=== PATIENT | male | born 1970 | race Caucasian/White ===

== ENCOUNTER 2020-07-02 04:30 | Outpatient (CLI) | payer BC, SELFPAY ==
[2020-07-02 19:32] LABS: SARS-CoV-2 RNA PCR Positive
== END 2020-07-02 04:31 | disposition home or self-care (01) ==
LOC: ANHCOVIDDT 04:30
PROVIDERS: PCP Internal Medicine; Visit Provider Surgery Plastic and Reconstructive Surgery
DX: U07.1 COVID-19 (principal)
CPT/HCPCS: C9803; U0003

== ENCOUNTER 2020-08-19 00:43 | Day surgery (SDC) | payer BC, SELFPAY ==
[2020-06-30 11:58] VITALS: BMI 34.0
[2020-08-11 15:14] VITALS: BMI 34.2
[2020-08-19] VITALS (7 sets, daily range): BP systolic 114–129; BP diastolic 62–78; PULSE 67–95; RESP 10–16; TEMP 36.3; O2SAT 94–100; BMI 34.7
[2020-08-19] MEDS: LACTATED RINGERS 1,000 ML 30 ML IV CONT ×2 (12:38→14:32)
--- NOTE | 2020-08-19 13:03 | WPDHPUPDATE1 ---
History and Physical Update Update Date/Time: 08/19/20 13:03 History and Physical has been reviewed, including an updated exam of the patient. There are NO changes in the patient's condition. Risks, benefits, and alternatives have been discussed and questions answered. Patient agrees to proceed with procedure.
--- NOTE | 2020-08-19 13:05 | PM.HPGS ---
History of Present Illness History of Present Illness Consent: Risks, benefits, and alternatives have been discussed and questions answered. Patient agrees to proceed with procedure. Chief complaint: Mass Right Posterior Neck Narrative: Soto Ferguson is a 50 year old male with a mass of right posterior neck. Would like to proceed with excision. Review of Systems Review of Systems: All systems reviewed & are unremarkable except as noted in HPI and below PMFSH Past Medical History Medical History (Updated 07/11/20 @ 09:02 by Shawna Ch CMA) BMI 34.0-34.9,adult BMI 35.0-35.9,adult Colon cancer screening Encounter to establish care Exposure to smoke from industrial source Follow up History of COVID-19 History of thyroid cancer Hypothyroidism (acquired) Lipoma of back Mixed hyperlipidemia On manager long term care drug therapy Pulmonary nodule Seasonal allergies Vitamin D deficiency Surgical History Surgical History Hx of thyroidectomy 2014. Due to thyroid cancer S/P ACL reconstruction 1998 Family History Family History Father Hypertension Hyperlipidemia Social History Social History Smoking packs per day: 0.5 Smoking cigarettes per day: 10.0 Years smoked: 10 Smoking pack-years: 5.00 Smoking status: Former smoker Tobacco type: cigarettes Smokeless tobacco user: other Second hand tobacco smoke exposure: No Smoking end date: 06/30/97 Alcohol intake: current Substance use: never Substance use type: does not use Last use: 06/30/97 Living arrangements: with family Gender identity (if verbalized by the patient): Male Spiritual care concerns: No Meds Home Medications and Allergies Home Medications Medication Instructions Recorded Confirmed Type cetirizine 10 mg tablet 10 mg PO DAILY tablet 03/22/20 08/19/20 History fluticasone propionate 50 2 spray NASAL DAILY 03/22/20 08/19/20 History mcg/actuation nasal spray,suspension multivitamin 1 tablet PO DAILY 03/22/20 08/11/20 History levothyroxine 175 mcg tablet 175 mcg PO DAILY tablet 04/27/20 08/11/20 History rosuvastatin 40 mg tablet 40 mg PO DAILY #60 tablet 06/08/20 08/11/20 Rx hydrocodone 5 mg-acetaminophen 325 1 tablet PO Q6H PRN #15 tablet 06/29/20 07/11/20 Rx mg tablet ondansetron HCl 4 mg tablet 4 mg PO Q6H PRN #30 tablet 06/29/20 07/11/20 Rx Allergies Allergy/AdvReac Type Severity Reaction Status Date / Time No Known Allergies Allergy Verified 08/19/20 12:25 Vital Signs Vital Signs - 24 hr 08/19/20 12:22 Temperature 36.3 C L Pulse Rate 74 Respiratory Rate 16 Blood Pressure 121/78 Pulse Oximetry 98 Exam Narrative: Exam Narrative: Soft mass noted on right posterior neck. Const: General: comfortable, no acute distress, alert and awake; No acute distress Orientation/consciousness: oriented to person HENMT: Head: normal to inspection Ears: external ears normal General nose exam: Normal external nose present Face and sinus: normal facial exam Eyes: General: appearance normal, both eyes and all related structures Periorbital: periorbital findings normal Eyelids: eyelids normal Conjunctivae: conjunctivae normal Neck: Neck: normal visual inspection Chest: Chest palpation & inspection: normal inspection of the chest Resp: Effort & Inspection: normal respiratory effort and able to speak in complete sentences GI: Inspection: normal to inspection Neuro: General: oriented to person Psych: Appearance: grossly normal Mental Status: mental status grossly normal Assessment and Plan Assessment and plan (1) Subcutaneous mass: Code(s): R22.9 - Localized swelling, mass and lump, unspecified Status: Acute Assessment and Plan: He would like to proceed with excision of right posterior neck mass. Ris
--- NOTE | 2020-08-19 13:17 | P.OP_ITS ---
Procedure Note - Detailed Date of procedure: 08/19/20 Pre-op diagnosis: Mass Right Posterior Neck Post-op diagnosis: same Procedure performed: 1. Excision right posterior neck mass 4.5 cm 2. Closure 4.5cm Description of procedure: Preoperatively the risks, benefits, alternatives were discussed in extensive detail. I want him to be very realistic about the risks involved as well as expectations. Made sure answered all of questions his s atisfaction. Consent was obtained. He was marked with his verification. He was taken to the operating room. Anesthesia provided by anesthesiology and placed in a prone position with care taken to protect all bony prominences. He was prepped and draped in a standard sterile fashion. She surgical time-out was taken. 1% lidocaine and 0.25% Marcaine with epinephrine was used anesthetize locally. A 15 blade used to make an incision over the mass. Dissection was continued down to the was identified completely removed with good visualization. No evidence of neurovascular or other structure injury. A closed in many layers to obliterate all space using a 2-0 Vicryl followed by 3-0 Monocryl in a running subcuticular 4-0 Monocryl and tissue glue. Dressing was placed. A woken and taken to the PACU without difficulty. All instrument sponge counts were correct at the end of the case. Anesthesia: GLMA Surgeon: Rafy Lundberg MD Estimated blood loss (mL): 10 Drains: No Packing: No Pathology: yes (Right posterior neck mass) Complications: No immediate complications Condition: stable Disposition: PACU Findings: Visual appearance consistent with Lipoma
--- NOTE | 2020-08-19 13:17 | WPDANESEPPF ---
Anes - Initial Pre Proc Eval Procedure: Operation Date: 08/19/20 14:00 Proposed Procedures p Excision Mass Right Posterior Neck - Rafy Lundberg MD Date/Time: 08/19/20 13:17 Surgeon: Rafy Lundberg MD Pre Op Diagnosis: Mass Right Posterior Neck Patient Data Age: 50 Gender: M Height: 5 ft 9 in Weight: 106.8 kg Last Vital Signs Temp 97.3 F L 08/19/20 12:22 Pulse 74 08/19/20 12:22 Resp 16 08/19/20 12:22 BP 121/78 08/19/20 12:22 Pulse Ox 98 08/19/20 12:22 Allergies Allergy/AdvReac Type Severity Reaction Status Date / Time No Known Allergies Allergy Verified 08/19/20 12:25 Home Medications Medication Instructions Recorded Confirmed Type cetirizine 10 mg tablet 10 mg PO DAILY tablet 03/22/20 08/19/20 History fluticasone propionate 50 2 spray NASAL DAILY 03/22/20 08/19/20 History mcg/actuation nasal spray,suspension multivitamin 1 tablet PO DAILY 03/22/20 08/11/20 History levothyroxine 175 mcg tablet 175 mcg PO DAILY tablet 04/27/20 08/11/20 History rosuvastatin 40 mg tablet 40 mg PO DAILY #60 tablet 06/08/20 08/11/20 Rx hydrocodone 5 mg-acetaminophen 325 1 tablet PO Q6H PRN #15 tablet 06/29/20 07/11/20 Rx mg tablet ondansetron HCl 4 mg tablet 4 mg PO Q6H PRN #30 tablet 06/29/20 07/11/20 Rx Patient hx anesthesia problems: none Family hx anesthesia problems: none PMFSH Past Medical History Medical History (Updated 07/11/20 @ 09:02 by Shawna Ch CMA) BMI 34.0-34.9,adult BMI 35.0-35.9,adult Colon cancer screening Encounter to establish care Exposure to smoke from industrial source Follow up History of COVID-19 History of thyroid cancer Hypothyroidism (acquired) Lipoma of back Mixed hyperlipidemia On checkroom attendant drug therapy Pulmonary nodule Seasonal allergies Vitamin D deficiency Surgical History Surgical History Hx of thyroidectomy 2014. Due to thyroid cancer S/P ACL reconstruction 1998 Family History Family History Father Hypertension Hyperlipidemia Social History Social History Smoking packs per day: 0.5 Smoking cigarettes per day: 10.0 Years smoked: 10 Smoking pack-years: 5.00 Smoking status: Former smoker Tobacco type: cigarettes Smokeless tobacco user: other Second hand tobacco smoke exposure: No Smoking end date: 06/30/97 Alcohol intake: current Substance use: never Substance use type: does not use Last use: 06/30/97 Living arrangements: with family Gender identity (if verbalized by the patient): Male Spiritual care concerns: No Anes - Eval Final PreProcedure Day of Procedure 08/19/20 13:17 Patient weight: obese Heart: regular rate and rhythm Lungs: clear to auscultation Airway: Mallampati scale class II Neurological: alert and oriented Last oral intake: >/= 8 hours ASA classification: III Emergent: no Anesthetic plan: proceed Anesthesia type and monitoring: general ETT (for prone positioning) and standard monitoring Informed Consent: The patient's anesthetic plan and its attendant risks and benefits were discussed with the patient/family/POA. Questions were solicited and answers provided to the satisfaction of the patient/family/POA.
[2020-08-19] MEDS: ceFAZolin 2 GM/D5W 50 ML 2 GM/50 ML BAG IVPB (13:30)
[2020-08-19] MEDS: LIDO 1%/EPINEPHRINE 1:100,000 50 ML VIAL 10 ML INFILTRATE (14:11)
[2020-08-19] MEDS: ONDANSETRON INJ 4 MG/2 ML VIAL IV PUSH (14:34)
== END 2020-08-19 16:05 | disposition home or self-care (01) ==
PROVIDERS: PCP Internal Medicine; Visit Provider Surgery Plastic and Reconstructive Surgery
PROC: (CPT 21552; principal; 2020-08-19 14:00)
DX: D17.0 Benign lipomatous neoplasm of skin and subcutaneous tissue of head, face and neck (principal); Z86.16 Personal history of COVID-19; Z85.850 Personal history of malignant neoplasm of thyroid; E55.9 Vitamin D deficiency, unspecified; E89.0 Postprocedural hypothyroidism; E78.2 Mixed hyperlipidemia; Z87.891 Personal history of nicotine dependence
CPT/HCPCS: 21552; 88304; J0330; J0690; J1100; J1170; J2250; J2405; J2704; J7120

== ENCOUNTER 2022-08-06 11:21 | Outpatient (CLI) | payer BC, SELFPAY ==
--- NOTE | ~2022-08-06 | XR_ITS ---
EXAMINATION: XR lumbar spine min 4V DATE: 08/06/2022 11:48 INDICATION: Dorsalgia, unspecified. TECHNIQUE: 7 views of lumbar spine including flexion and extension views were obtained. COMPARISON: Lumbar spine radiograph 12/13/2011 FINDINGS: Bone alignment is normal. There is no abnormal motion with flexion or extension. Vertebral body heights are normal. There is mildly decreased disc height at L4-L5. There is moderate to severe facet joint osteoarthritis bilaterally at L4-L5 and L5-S1. IMPRESSION: 1. Mild lumbar spondylosis. Reviewed, dictated and finalized at location A. S REPRESENTATIVE SUPERVISOR IMPRESSION: 1. Mild lumbar spondylosis.
== END 2022-08-06 11:22 | disposition home or self-care (01) ==
PROVIDERS: PCP Internal Medicine; Visit Provider Internal Medicine
DX: M47.816 Spondylosis without myelopathy or radiculopathy, lumbar region (principal)
CPT/HCPCS: 72110

== ENCOUNTER 2023-01-15 10:58 | Outpatient (CLI) | payer BC, SELFPAY ==
--- NOTE | ~2023-01-15 | XR_ITS ---
Right Shoulder Technique: AP and axillary views were obtained. Clinical History: Pain Findings: No fracture or dislocation is seen. Osseous alignment is anatomic. The glenohumeral and acr omioclavicular joint spaces are preserved. Soft tissues are unremarkable. Impression: Unremarkable right shoulder radiographs. Reviewed, dictated and finalized at [facility]. Impression: Unremarkable right shoulder radiographs.
--- NOTE | ~2023-01-15 | XR_ITS ---
XR_CERV2-3V_CR DATE: 01/15/2023 11:19 INDICATION: Bilateral shoulder pain TECHNIQUE: Flexion and extension lateral views, swimmer view COMPARISON: No recent cervical spine radiographic examination is available FINDINGS: This is a limited and incomplete radiographic evaluation of the cervical spine. C1 and C2 appear normally aligned and the odontoid process appears intact. Normal alignment of the cervical spine. No fracture or dislocation is evident. No prevertebral soft t issue swelling. Cervical interspaces appear preserved. IMPRESSION: Incomplete examination; no significant abnormality detected Reviewed, dictated and finalized at Location A. Reviewed, dictated and finalized at location L.
--- NOTE | ~2023-01-15 | XR_ITS ---
Left Shoulder Technique: AP and axillary views were obtained. Clinical History: Pain Findings: No fracture or dislocation is seen. Osseous alignment is anatomic. The glenohumeral and acr omioclavicular joint spaces are preserved. Soft tissues are unremarkable. Impression: Unremarkable left shoulder radiographs. Reviewed, dictated and finalized at [facility]. Impression: Unremarkable left shoulder radiographs.
== END 2023-01-15 10:59 | disposition home or self-care (01) ==
LOC: ANHIMG 11:02
PROVIDERS: PCP Internal Medicine; Visit Provider Internal Medicine
DX: M25.519 Pain in unspecified shoulder (principal); M25.50 Pain in unspecified joint
CPT/HCPCS: 72040; 73030

== ENCOUNTER 2024-08-21 11:02 | Outpatient (CLI) | payer BC, SELFPAY | END 2024-08-21 11:03 | disposition home or self-care (01) | LOC: ANHIMG 11:04 | PROVIDERS: PCP Internal Medicine; Visit Provider Internal Medicine | DX: R07.89 Other chest pain (principal); W19.XXXA Unspecified fall, initial encounter | CPT/HCPCS: 71046; 71120 ==

== ENCOUNTER 2025-06-09 12:29 | Outpatient (CLI) | payer BC, SELFPAY ==
--- NOTE | ~2025-06-09 | XR_ITS ---
XR cervical spine 4-5V Indication: M54.2 - Cervicalgia, NUMBNESS ON LEFT SIDE X 2 MONTHS Comparison: None Findings: The vertebral heights are intact, no fracture, no subluxation with flexion and extension The disc heights are intact. Soft tissues unremarkable Impression: No acute abnormality. Reviewed, dictated and finalized at location P. ING UTILITY TENDER Impression: No acute abnormality.
--- NOTE | ~2025-06-09 | XR_ITS ---
EXAMINATION: XR shoulder LT min 2V, 06/09/2025 12:40 BOARDING MACHINE OPERATOR HISTORY: M25.512 - Pain in left shoulder, NUMBNESS IN LT ARM X 2 MTHS COMPARISON: No comparisons available. Findings: No acute fracture or malalignment. No significant degenerative changes. Soft tissues unremarkable. Impression: No acute fracture or malalignment. Reviewed, dictated and finalized at location P. DING MACHINE OPERATOR Impression: No acute fracture or malalignment.
--- OUTSIDE RECORDS SUMMARY | 2025-06-09 14:23 | XMS_ITS | Clinical Summary ---
Author Organization [facility] Address [address] [place] [address] [place] [address] Care Team Providers Care Geriatric Case Manager Name Role Phone Unavailable Primary Care Provider Unavailabl e Source Comments [facility],non-owned Affiliates and Associated Physician Practices is amultiple site organization consisting of ambulatory clinics and hospital sitesin [place], [place], [place] and [place]. This disclosure is being madepursuant to the Care Everywhere program and may not contain all information available regarding this patient. Last updated 18.[facility] [employer] Allergies No known active allergies Social History Tobacco Use Types Packs/Day Years Used Date Smoking Tobacco: Never Assessed Sex and Gender Information Value Date Recorded Sex Assigned at Not on file Legal Sex Male 7:02 PM MARKETING/SALES PERSON Gender Identity Not on file Sexual Orientation Not on file Plan of Treatment Health Maintenance Due Date Last Done Comments COLOGUARD (AGES 45-75) - COL ON CA SCREENING 1972 COLON MONITORING 1972 COLONOSCOPY - COLON CA SCREENING 1972 CT COLONOGRAPHY - COLON CA SCREENING 1972 Colorectal Cancer Screening 1972 FIT - COLON CA SCREENING 1972 FLEX SIG - COLON CA SCREENING 1972 LIPID TESTING 1972 HIV SCREENING 1987 HEPATITIS C SCREENING 04/09/1990 DTAP/TDAP/TD VACCINES (1 - Tdap) 1991 HEPATITIS B VACCINE (1 of 3 - 19+ 3-dose series) 1991 PNEUMOCOCCAL VACCINE 50+ (1 of 1 - PCV) 2022 ZOSTER VACCINE (1 of 2) 2022 DEPRESSION SCREENING 06/24/2024 COVID-19 VACCINE (1 - 2024-2 6 season) 2025 INFLUENZA VACCINE (#1) 2025 HIB VACCINE Aged Out No longer eligi ble based on patient's age to complete this topic HPV VACCINE Aged Out No longer eligi ble based on patient's age to complete this topic MENINGOCOCCAL (Group B) VACC INE SHARED DECISION-MAKING Aged Out No longer eligibl e based on patient's age to complete this topic MENINGOCOCCAL GROUPS A/C/Y/W VACCINE Aged Out No longer eligible b ased on patient's age to complete this topic Insurance [employer] Member Subscriber Plan / Payer ( fective 2015-Present) Name:Jessica Ferguson Relation to Subscriber:Self Name:Jessica Ferguson Payer ID:[id number] (NAIC) Type:PPO Address: [place] [phone] [employer]
--- OUTSIDE RECORDS SUMMARY | 2025-06-09 14:23 | XMS_ITS | Clinical Summary ---
Author Organization [facility] Address [address] [place] [id number] Care Team Providers Care Sample Sewer Name Role Phone Darryl Cole MD Primary Care Provider [phone] Social History Tobacco Use Types Packs/Day Years Used Date Smoking Tobacco: Never Assessed Sex and Gender Information Value Date Recorded Sex Assigned at Male 12/02/2024 4:53 PM CDT Legal Sex Male 6:55 PM CDT Gender Identity Not on file Sexual Orientation Not on file Plan of Treatment Health Maintenance Due Date Last Done Comments Colorectal Cancer Screening Colonoscopy (10 Years) 1972 Annual Physical 1975 Hepatitis C 1990 DTaP, Tdap and Td Vaccines ( 1 - Tdap) 1991 Hepatitis B Vaccines (1 of 3 - 19+ 3-dose series) 1991 Pneumococcal Vaccine: 50+ Years (1 of 1 - PCV) 2022 Zoster Vaccines (1 of 2) 2022 COVID-19 Vaccine (3 - 2024-2 6 season) 2025 05/22/2021, 04/19/2021 Influenza Adult (#1) 2025 Hepatitis A Vaccines Aged Out No long er eligible based on patient's age to complete this topic Meningococcal B Vaccine Aged Out No l onger eligible based on patient's age to complete this topic Meningococcal Vaccine Aged Out No luda marizol eligible based on patient's age to complete this topic RSV Immunizations Under 20 Months Aged Out No longer eligible b ased on patient's age to complete this topic Insurance [facility] Care Teams Sample Sewer Relationship Specialty Start Date End Date Darryl Cole MD [id number] [facility] [address] [place] [id number] PCP - General INTERNAL MEDICINE 04/28/20
== END 2025-06-09 12:30 | disposition home or self-care (01) ==
PROVIDERS: PCP Internal Medicine; Visit Provider Internal Medicine
DX: M25.512 Pain in left shoulder (principal); M54.2 Cervicalgia; G89.29 Other chronic pain
CPT/HCPCS: 72050; 73030